=== PATIENT | male | born 1995 | race Caucasian/White ===

== ENCOUNTER 2020-09-09 16:11 | Emergency (ER) | payer OTHER ==
[2020-09-09 16:21] VITALS: BP 123/77; PULSE 94; TEMP 98; BMI 36.3
[2020-09-09] MEDS ORDERED: IBUPROFEN 400 MG TABLET (FP) PO ONE ×2 (16:46→16:50)
== END 2020-09-09 17:33 | disposition home or self-care (01) ==
LOC: JERFT 16:11
DX: S92.424B Nondisplaced fracture of distal phalanx of right great toe, initial encounter for open fracture (principal)
CPT/HCPCS: 73660-TC-FY; 99284-25